=== PATIENT | male | born 1995 | race Caucasian/White ===

== ENCOUNTER 2017-01-08 04:18 | Emergency (ER) | payer OTHER ==
[~2017-01-08 04:18] MED LIST: CONCERTA PO; DELTASONE20 MG PO; HYDROXYZINE PAM25 M1 PO; IBUPROFEN800 MG PO; KEFLEX500 MG PO; LORTAB 5/500 TA1 TA1 PO; NO MEDICATIONS
[2017-01-30] MEDS ORDERED: NO MEDICATIONS (18:56)
== END 2017-01-08 04:24 | disposition home or self-care (01) ==
LOC: SED 04:18
DX: L50.9 Urticaria, unspecified (principal); H57.02 Anisocoria; F90.9 Attention-deficit hyperactivity disorder, unspecified type
CPT/HCPCS: 99282

== ENCOUNTER 2017-01-30 19:15 | Emergency (ER) | payer OTHER | END 2017-01-30 20:18 | disposition home or self-care (01) | LOC: SED 19:15 | DX: T78.1XXA Other adverse food reactions, not elsewhere classified, initial encounter (principal); T78.3XXA Angioneurotic edema, initial encounter; F90.9 Attention-deficit hyperactivity disorder, unspecified type | CPT/HCPCS: 99282 ==